=== PATIENT | male | born 2000 | race Caucasian/White ===

== ENCOUNTER 2021-08-05 19:29 | Emergency (ER) | payer SELFPAY ==
[~2021-08-05] VITALS: Ht 203.2 cm; Wt 139.0 kg
[2021-08-05 20:26] VITALS: BP 165/74
[2021-08-05] MEDS ORDERED: KETOROLAC 30 MG/ML VIAL. IM ONE (20:45)
[2021-08-05] MEDS ORDERED: ORPHENADRINE CITRATE 60 MG/2 ML VIAL. IM ONE (20:45)
[2021-08-05] MEDS ORDERED: DEXAMETHASONE 4 MG TABLET PO ONE (20:45)
--- NOTE | 2021-08-05 20:49 | PHYS DOC ---
Past Medical History Past Medical History: Anxiety, Depression Past Surgical History: Other Additional Past Surgical Histo: R arm fx, head lucia Smoking Status: Current Every Day Smoker Alcohol Use: Occasionally Drug Use: Marijuana General Adult EDM: Chief Complaint: LOWER EXT PAIN HPI: HPI: Patient is a 20-year-old male presents with report of left leg pain been ongoing since this morning. Patient reports his leg "gave out while trying to cross the road ". Patient reports additional "leg tremor "which started approximately 3 hours ago. Patient describes the pain as "searing and shooting ". Patient denies known trauma. Patient does report hurting his low back approximately 2 weeks ago while at work. Patient reports he ended up carrying a heavy object with another individual and the weight shifted onto him. Patient reports at that time he required a days worth of rest due to his back to being "thrown out ". Patient denies taking any medication for the pain today. Denies leg swelling. Denies history of DVT. Patient also reports deformity to right fourth MCP after he punched a wall approximately 4 weeks ago. Patient reports concern that it looks different than his other hand. Review of Systems: Review of Systems: Constitutional: Denies fever or chills Eyes: Denies redness or eye pain HENT: Denies nasal congestion or sore throat Respiratory: Denies cough or shortness of breath Cardiovascular: Denies chest pain or palpitations GI: Denies abdominal pain, nausea, or vomiting : Denies dysuria or hematuria Musculoskeletal: Reports back pain and left leg pain and right fourth MCP pain and deformity Integument: Denies rash or erythema Neurologic: Denies headache, focal weakness or sensory changes Complete systems were reviewed and found to be within normal limits, except as documented in this note. Heart Score: C/O Chest Pain: N/A Allergies: Allergies: Allergies Coded Allergies Type Severity Reaction Last Updated Verified No Known Drug Allergies 08/05/21 No Physical Exam: PE: Constitutional: Well developed, obese, no acute distress, non-toxic appearance HENT: Normocephalic, atraumatic Eyes: Conjunctiva normal, no discharge Neck: Normal range of motion, supple Lungs & Thorax: No respiratory distress, equal chest rise and fall Skin: Warm, dry, no erythema, no rash Back: Left low lumbar paraspinal tenderness, no midline tenderness, left leg straight leg raise elicits pain at approximately 30 degrees, no CVA tenderness Extremities: Left DP and PT +2, calf nontender and without swelling, left lower extremity compartments soft, ROM with pain, right fourth MCP flattening noted in comparison to other fingers, some tenderness to right fourth MCP on palpation, right radial pulse +2 Neurologic: Alert and oriented X 3, normal motor function, normal sensory func tion, no focal deficits noted Psychologic: Affect normal, judgment normal Current Patient Data: Vital Signs: Vital Signs Date Time Temp Pulse Resp B/P (MAP) Pulse Ox O2 Delivery O2 Flow Rate FiO2 08/05/21 20:00 98.3 106 16 167/104 (125) 100 Room Air 98.3 EKG: EKG: [] Radiology/Procedures: Radiology/Procedures: PROCEDURE: HAND RIGHT 3V INDICATION: Reason: 4th MCP pain/swelling, hx of blunt trauma 4 weeks ago / Spl. Instructions: / History: COMPARISON: None. IMPRESSION: Right hand: 3 views obtained. No definite acute fracture or dislocation. Electronically signed by: Christ Smith MD (08/06/2021 1:26 AM) [id number] Course & Med Decision Making: Course & Med Decision Making Pertinent Imaging studies reviewed. (See chart for details) Patient presents with HPI and physical exam concerning for sciatica of left leg. Patient without midline spinal tenderness. Denies loss of bowel or bladder. Symptomatic treatment provided. Crutches provided for stability. Patient also complains of subacute injury to right fourth MCP approximately 4 weeks ago after punching a wall. X-ray therefore obtained. Subacute 4th proximal phalanx healing fracture noted. Aluminium splint applied for protection of healing fracture. Patient stable for discharge with outpatient follow-up with PCP/pain management/orthopedics. Pain management and orthopedic referral provided. Discussed findings and plan with patient, who acknowledges understanding and agreement. Lily Disclaimer: Lily Disclaimer: This electronic medical record was generated, in whole or in part, using a voice recognition dictation system. Splinting Splinting : Location: Left 4th finger Pre-Made Type: metal (Aluminum finger splint) Pre-Proc Neuro Vasc Exam: normal Post-Proc Neuro Vasc Exam: normal, unchanged from pre-exam Departure Departure Impression: Primary Impression: Sciatica of left side Additional Impression: Phalanx, proximal fracture of finger Qualified Codes: S62.644A - Nondisplaced fracture of proximal phalanx of right ring finger, initial encounter for closed fracture Disposition: HOME / SELF CARE / HOMELESS Condition: STABLE Referrals: NO PCP (PCP) FRANK MAO MD, TIMOTHY J MD Patient Instructions: Finger Fracture (Phalangeal)-SportsMed, Sciatica, [id number] Additional Instructions: ICE area of discomfort 20 min on then leave off next 20 mins. Repeat several times daily for the next 2 days. Use [id number] ibuprofen and Tylenol trading off between the medications as needed for pain. Scripts Prednisone (PREDNISONE) 20 Mg Tablet 2 TAB PO DAILY, #8 TAB Start this prescription tomorrow, Monday08/06/21 Prov: ROBYN JURADO DO 08/05/21 Orphenadrine Citrate (ORPHENADRINE CITRATE) 100 Mg Tablet.er 100 MG PO BID PRN for MUSCLE PAIN, #20 TAB Prov: ROBYN JURADO DO 08/05/21 ROBYN JURADO DO Aug 05, 2021 20:49
[2021-08-05] MEDS ORDERED: PRED20TA PO (21:05)
[2021-08-05] MEDS ORDERED: ORPH100T PO (21:05)
--- NOTE | 2021-08-06 01:28 | RAD ---
INDICATION: Reason: 4th MCP pain/swelling, hx of blunt trauma 4 weeks ago / Spl. Instructions: / His tory: COMPARISON: None. IMPRESSION: Right hand: 3 views obtained. No definite acute fracture or dislocation. Electronically signed by: Christ Smith MD (08/06/2021 1:26 AM) [id number]
== END 2021-08-05 21:10 | disposition home or self-care (01) ==
LOC: ER 19:29
DX: S62.644A Nondisplaced fracture of proximal phalanx of right ring finger, initial encounter for closed fracture (principal); M54.42 Lumbago with sciatica, left side; F41.9 Anxiety disorder, unspecified; F32.9 Major depressive disorder, single episode, unspecified; F17.200 Nicotine dependence, unspecified, uncomplicated; W22.01XA Walked into wall, initial encounter; Y93.89 Activity, other specified; Y92.89 Other specified places as the place of occurrence of the external cause; Y99.8 Other external cause status
CPT/HCPCS: 29130; 73130; 96372; 99284; J1885; J2360